=== PATIENT | male | born 1950 | race Caucasian/White ===

== ENCOUNTER 2016-12-09 16:35 | Inpatient (IN) | payer OTHER ==
[~2016-12-09] VITALS: Ht 172.7 cm; Wt 99.0 kg
--- NOTE | 2016-12-09 18:36 | DIAGNOSTIC IMAGING REPORT ---
PROCEDURE: XR CHEST 1 VIEW INDICATION: SHORTNESS OF BREATH TECHNIQUE: Portable AP view (1725 hours). COMPARISON: None. FINDINGS: Allowing for suboptimal inspiration, lungs are clear. Heart and mediastinum are normal. Mild to moderate degenerative changes of the thoracic spine. IMPRESSION: 1. Negative chest.
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
--- NOTE | 2016-12-09 20:29 | ED ORDER SUMMARY ---
..... Patient: KRYSTIN GREENBERG JR OrderSheet [facility] VisitID: [id number] [place] [address] 66y, M Registration Date/Time: 12/09/2016 ORDER SHEET Weight: 99.7 kg (stated) Allergies: No Known Drug Allergy GENERAL ORDERS: Chest 1V Urgent (17:17 12/09/2016 Galo RAMOS) (Ack 17:29 Hung) (19:05 LSullivan R.N.) Felt Tipping Machine Tender (Continuous) (17:17 12/09/2016 Galo RAMOS) (17:29 Hung) Cardiac Panel Stat (17:17 12/09/2016 Galo RAMOS) (Ack 17:29 Hung) (19:04 LSullivan R.N.) BNP Urgent (17:17 12/09/2016 Galo RAMOS) (Ack 17:29 Hung) (19:04 LSullivan R.N.) TSH Urgent (17:17 12/09/2016 Galo RAMOS) (Ack 17:29 Hung) (19:04 LSullivan R.N.) PCT (Procalcitonin) Urgent (17:17 12/09/2016 Galo RAMOS) (Ack 17:29 Hung) (19:04 LSullivan R.N.) Pulse oximeter (17:17 12/09/2016 Galo RAMOS) (17:29 RKkorey) EKG - ER Stat (17:17 12/09/2016 Galo RAMOS) (17:21 RKkorey) MEDICATION ORDERS: Xopenex Neb Tx 1 unit dose (NOW) (17:18 12/09/2016 Galo RAMOS) (19:06 LSullivan R.N.) Cardizem Drip IV : 10 mg/hr (NOW) (19:51 12/09/2016 CLARICEowen R.N. verbal order read back to Galo RAMOS) (Cancelled: Physician Order19:59 TBowen R.N.) Cardizem Drip IV : initial bolus none, then 10 mg/hr (NOW); Routine (21:17 12/09/2016 Galo RAMOS) (21:31 TByovany R.N.) Xopenex Neb Tx 1 unit dose (NOW) (21:25 12/09/2016 Galo RAMOS) (21:44 HSoule) IV FLUIDS: IV Saline Lock (17:17 12/09/2016 Galo RAMOS) (17:52 LSullivan R.N.) Solu-MEDROL IV 80 mg (NOW) (17:18 12/09/2016 Galo RAMOS) (18:00 LSullivan R.N.) Cardizem IV 10 mg (NOW) (19:07 12/09/2016 Galo RAMOS) (19:18 TBowen R.N.) Cardizem IV 20 mg (NOW) (19:53 12/09/2016 Galo RAMOS) (19:57 TBowgilberto R.N.) ORDER SHEET NOTES: [Electronically signed by Cecile Pastrana R.N. (22:47 12/09/2016)] [Electronically signed by Robinson Strange MD (11:45 12/10/2016)] [Electronically locked/signed by Cecile Pastrana R.N. (22:47 12/09/2016)]
--- NOTE | 2016-12-09 20:29 | ED ORDER SUMMARY ---
..... Patient: KRYSTIN GREENBERG JR OrderSheet [facility] VisitID: [id number] [place] [address] 66y, M Registration Date/Time: 12/09/2016 ORDER SHEET Weight: 99.7 kg (stated) Allergies: No Known Drug Allergy GENERAL ORDERS: Chest 1V Urgent (17:17 12/09/2016 Galo RAMOS) (Ack 17:29 Hung) (19:05 LSullivan R.N.) Pit And Auxiliaries Supervisor (Continuous) (17:17 12/09/2016 Galo RAMOS) (17:29 Hung) Cardiac Panel Stat (17:17 12/09/2016 Galo RAMOS) (Ack 17:29 Hung) (19:04 LSullivan R.N.) BNP Urgent (17:17 12/09/2016 Galo RAMOS) (Ack 17:29 Hung) (19:04 LSullivan R.N.) TSH Urgent (17:17 12/09/2016 Galo RAMOS) (Ack 17:29 Hung) (19:04 LSullivan R.N.) PCT (Procalcitonin) Urgent (17:17 12/09/2016 Galo RAMOS) (Ack 17:29 Hung) (19:04 LSullivan R.N.) Pulse oximeter (17:17 12/09/2016 Galo RAMOS) (17:29 RKkorey) EKG - ER Stat (17:17 12/09/2016 Galo RAMOS) (17:21 RKkorey) MEDICATION ORDERS: Xopenex Neb Tx 1 unit dose (NOW) (17:18 12/09/2016 Galo RAMOS) (19:06 LSullivan R.N.) Cardizem Drip IV : 10 mg/hr (NOW) (19:51 12/09/2016 CLARICEowen R.N. verbal order read back to Galo RAMOS) (Cancelled: Physician Order19:59 TBowen R.N.) Cardizem Drip IV : initial bolus none, then 10 mg/hr (NOW); Routine (21:17 12/09/2016 Galo RAMOS) (21:31 TByovany R.N.) Xopenex Neb Tx 1 unit dose (NOW) (21:25 12/09/2016 Galo RAMOS) (21:44 HSoule) IV FLUIDS: IV Saline Lock (17:17 12/09/2016 Galo RAMOS) (17:52 LSullivan R.N.) Solu-MEDROL IV 80 mg (NOW) (17:18 12/09/2016 Galo RAMOS) (18:00 LSullivan R.N.) Cardizem IV 10 mg (NOW) (19:07 12/09/2016 Galo RAMOS) (19:18 TBowen R.N.) Cardizem IV 20 mg (NOW) (19:53 12/09/2016 Galo RAMOS) (19:57 TBowgilberto R.N.) ORDER SHEET NOTES: [Electronically signed by Cecile Pastrana R.N. (22:47 12/09/2016)] [Electronically signed by Robinson Strange MD (11:45 12/10/2016)] [Electronically locked/signed by Cecile Pastrana R.N. (22:47 12/09/2016)]
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
[2016-12-09 22:51] VITALS: BP 113/64
[2016-12-10] VITALS (25 sets, daily range): BP systolic 11–137; BP diastolic 57–82
[2016-12-10] MEDS ORDERED: ALFUZOSIN HCL E10 MG PO (00:03)
[2016-12-10] MEDS ORDERED: ASPIRIN325 MG PO (00:04)
[2016-12-10] MEDS ORDERED: ATORVASTATIN CA40 MG PO (00:05)
[2016-12-10] MEDS ORDERED: GUAIFENESIN AC PO (00:06)
[2016-12-10] MEDS ORDERED: PRINIVIL5 MG PO (00:08)
[2016-12-10] MEDS ORDERED: MELOXICAM15 MG PO (00:10)
[2016-12-10] MEDS ORDERED: METOPROLOL TART25 MG PO (00:11)
[2016-12-10] MEDS ORDERED: PROAIR HFA IN (00:12)
[2016-12-10] MEDS ORDERED: SERTRALINE HCL50 MG PO (00:12)
[2016-12-10] MEDS ORDERED: ZOLOFT50 MG PO (00:14)
--- NOTE | 2016-12-10 08:38 | Progress Note ---
Subjective General ADVANCED CARE PLAN History of Present Illness The patient is a 66-year-old white male with a significant past medical history of COPD, coronary artery disease status post myocardial infarction status post stent placement, peripheral arterial disease, hypertension, CHF, degenerative joint disease, hyperlipidemia, who presented to [facility] on the day of admission secondary to complaints of syncope 6, and atrial flutter. [facility] ER evaluation was consistent with recurrent syncope always associated with coughing episodes, atrial flutter with rapid ventricular response. Secondary to the above, the patient was admitted by Dustin Hernandez M.D. for further evaluation and treatment. For other history present illness, past medical history, family history, social history, review of systems, and admission physical examination please see the patient's history and physical examination and ER visit note in the patient's medical record. A discussion was undertaken with the patient regarding previous advance care arrangements/decisions. The following advanced directives were noted by the patient and discussed with me at the time of admission. ADVANCED DIRECTIVES: 1. Living well: No 2. POLST: No 3. CODE STATUS: FULL CODE 4. Durable Power Carnival Worker Health care: Yes 5. Donor card: No The patient has expressed interest in pursuing full resuscitative efforts at the time of cardiopulmonary arrest. The patient's wishes were documented in the chart and orders regarding the patient's wishes entered into the [employer] CPOE system. The "Advance Care Plan Document" was not distributed to patient to discuss with his family. Less than 30 minutes was spent in performing the above tasks and documentation of the patient's advanced care plan.
--- NOTE | 2016-12-10 08:38 | Progress Note ---
Subjective General ADVANCED CARE PLAN History of Present Illness The patient is a 66-year-old white male with a significant past medical history of COPD, coronary artery disease status post myocardial infarction status post stent placement, peripheral arterial disease, hypertension, CHF, degenerative joint disease, hyperlipidemia, who presented to [facility] on the day of admission secondary to complaints of syncope 6, and atrial flutter. [facility] ER evaluation was consistent with recurrent syncope always associated with coughing episodes, atrial flutter with rapid ventricular response. Secondary to the above, the patient was admitted by Dustin Hernandez M.D. for further evaluation and treatment. For other history present illness, past medical history, family history, social history, review of systems, and admission physical examination please see the patient's history and physical examination and ER visit note in the patient's medical record. A discussion was undertaken with the patient regarding previous advance care arrangements/decisions. The following advanced directives were noted by the patient and discussed with me at the time of admission. ADVANCED DIRECTIVES: 1. Living well: No 2. POLST: No 3. CODE STATUS: FULL CODE 4. Durable Power Pump Station Operator Health care: Yes 5. Donor card: No The patient has expressed interest in pursuing full resuscitative efforts at the time of cardiopulmonary arrest. The patient's wishes were documented in the chart and orders regarding the patient's wishes entered into the [employer] CPOE system. The "Advance Care Plan Document" was not distributed to patient to discuss with his family. Less than 30 minutes was spent in performing the above tasks and documentation of the patient's advanced care plan.
--- NOTE | 2016-12-10 11:45 | ED MED RECONCILIATION SUMMARY ---
Patient: KRYSTIN GREENBERG Medication Reconciliation Report [facility] VisitID: [id number] [address] [place] [address] 66y, M Registration Date/Time: 12/09/2016 Weight: 99.7 kg Height/Length: 60 in. BMI: 33.0 ALLERGIES: No Known Drug Allergy The patient's Home Medications are listed below: THE FOLLOWING MEDICATIONS NEED TO BE RECONCILED: Alfuzosin HCl ER Oral (10 mg) 1 tablet ASA Oral 325 mg daily Atorvastatin Calcium Oral 40 mg, daily Guaifenesin W/Codeine Oral 5 mls 10mg/100mg/5mls Lisinopril Oral 5 mg, daily Meloxicam Oral (15 mg) 1 tablet, daily Metoprolol Tartrate Oral 25 mg, BID ProAir HFA Inhalation 2 puffs, 4x a day Sertraline HCl Oral 50 mg, daily The source(s) of the original Home Medication information: Not obtained. The following Medications were given to the patient in the Emergency Department: SOLU-MEDROL [IVP] IVP 80 mg, administered: 12/09/2016 6:00:00 PM Xopenex [Neb TX] Neb TX 1.25 mg, administered: 12/09/2016 6:41:00 PM Cardizem [IVP] IVP 10 mg, administered: 12/09/2016 7:18:00 PM Cardizem [IVP] IVP 20 mg, administered: 12/09/2016 7:57:00 PM Cardizem [IV Drip] Drip IV bolus 0, then 10 mg 10 mg/hr, administered: 12/09/2016 9:31:00 PM Xopenex [Neb TX] Neb TX 1 unit dose, administered: 12/09/2016 9:44:00 PM The following Medications were prescribed to the patient: None.
--- NOTE | 2016-12-10 11:45 | ED MAR SUMMARY ---
..... Medication Administration Record [facility] [address] [place] [address] Patient: KRYSTIN GREENBERG Visit ID: [id number] 66y, M Weight: 99.7 kg Height/Length: 68.5 in BMI: 33 ALLERGIES: No Known Drug Allergy Given 18:00 12/09/2016 Kourtney Tovar R.N. Medication Administered: SOLU-MEDROL [IVP] (METHYLPREDNISOLONE SODIUM SUCC), Dose: 80 mg IVP over 2 minute(s), Site: #1 right hand. Medication Ordered: Solu-MEDROL IV 80 mg (NOW). Given 18:41 12/09/2016 Kourtney Tovar R.N. Medication Administered: XOPENEX [NEB TX] (LEVALBUTEROL HCL), Dose: 1.25 mg Nebulizer Neb TX. Medication Ordered: Xopenex Neb Tx 1 unit dose (NOW). Given 19:18 12/09/2016 Yoana Garcia Medication Administered: CARDIZEM [IVP], Dose: 10 mg IVP over 1 minute(s), Site: #1 right hand. Medication Ordered: Cardizem IV 10 mg (NOW). Given 19:57 12/09/2016 Yoana Garcia Medication Administered: CARDIZEM [IVP], Dose: 20 mg IVP over 2 minute(s), Site: #1 right hand. Medication Ordered: Cardizem IV 20 mg (NOW). Start 21:31 12/09/2016 Yoana Garcia Medication Administered: CARDIZEM [IV DRIP], Dose: 10 mg Drip IV over 10 hour(s), Rate: 10 mg/hr, Dispensed: 125 mL bag, Site: #1 right hand. Medication Ordered: Cardizem Drip IV : initial bolus none, then 10 mg/hr (NOW); Routine. Given 21:44 12/09/2016 Jordyn Dai, Medication Administered: XOPENEX [NEB TX] (LEVALBUTEROL HCL), Dose: 1 unit dose Nebulizer Neb TX. Medication Ordered: Xopenex Neb Tx 1 unit dose (NOW).
--- NOTE | 2016-12-10 11:45 | ED MED RECONCILIATION SUMMARY ---
Patient: KRYSTIN GREENBERG Medication Reconciliation Report [facility] VisitID: [id number] [address] [place] [address] 66y, M Registration Date/Time: 12/09/2016 Weight: 99.7 kg Height/Length: 60 in. BMI: 33.0 ALLERGIES: No Known Drug Allergy The patient's Home Medications are listed below: THE FOLLOWING MEDICATIONS NEED TO BE RECONCILED: Alfuzosin HCl ER Oral (10 mg) 1 tablet ASA Oral 325 mg daily Atorvastatin Calcium Oral 40 mg, daily Guaifenesin W/Codeine Oral 5 mls 10mg/100mg/5mls Lisinopril Oral 5 mg, daily Meloxicam Oral (15 mg) 1 tablet, daily Metoprolol Tartrate Oral 25 mg, BID ProAir HFA Inhalation 2 puffs, 4x a day Sertraline HCl Oral 50 mg, daily The source(s) of the original Home Medication information: Not obtained. The following Medications were given to the patient in the Emergency Department: SOLU-MEDROL [IVP] IVP 80 mg, administered: 12/09/2016 6:00:00 PM Xopenex [Neb TX] Neb TX 1.25 mg, administered: 12/09/2016 6:41:00 PM Cardizem [IVP] IVP 10 mg, administered: 12/09/2016 7:18:00 PM Cardizem [IVP] IVP 20 mg, administered: 12/09/2016 7:57:00 PM Cardizem [IV Drip] Drip IV bolus 0, then 10 mg 10 mg/hr, administered: 12/09/2016 9:31:00 PM Xopenex [Neb TX] Neb TX 1 unit dose, administered: 12/09/2016 9:44:00 PM The following Medications were prescribed to the patient: None.
--- NOTE | 2016-12-10 11:45 | ED DISCHARGE INSTRUCTIONS ---
Patient: KRYSTIN GREENBERG JR General Instructions [facility] VisitID: [id number] [place] [address] 66y, M Registration Date/Time: 12/09/2016 Syncope secondary to illness .12 lead EKG performed. New onset atrial flutter. The patient does not have one or more high risk factors and/or two or more moderate risk factors for thromboembolism. ADDITIONAL INFORMATION Atrial Flutter Atrial flutteris a condition where the heart beats at a very rapid rate. It is due to a disturbance in the electrical pathways of the heart. It is a sign of heart disease or other health problems affecting the heart. The most common symptom ispalpitations. This is the feeling that your heart is fluttering or beating fast or hard. When the heart beats too fast, it does not pump blood very well. This can cause other symptoms such as anxiety, fatigue, shortness of breath, chest pain, dizziness or fainting. If this is your first episode of atrial flutter, and you have no heart or lung disease, you may never have another episode again. But in most cases, atrial flutter comes and goes, lasting from a few hours to a couple of days. Sometimes the atrial flutter does not ever go away and becomes chronic. Atrial flutter may be caused by disease of the heart or other conditions in the body that affect the heart: Coronary artery disease (arteriosclerosis) High blood pressure Disease of the heart valves Enlarged heart Atrial flutter can occur without heart disease due to: Overactive thyroid (hyperthyroid) Chronic lung disease (COPD, emphysema, bronchitis) Heavy alcohol use Cardiac stimulants (cocaine, amphetamines, diet pills, certain decongestant cold medicines, caffeine or nicotine) Infection Treating or removing these causes will improve success in the treatment of atrial flutter and reduce your risk of recurrence. Atrial flutter can alternate back and forth with another abnormal rhythm called atrial fibrillation. The risk of stroke is higher with these conditions. Proper treatment can reduce your risk. Home Care: Resume your usual activities as soon as you are feeling back to normal. If you smoke, stop smoking. Contact your doctor or a local stop-smoking program for help. Avoid stimulants (cocaine, amphetamines, diet pills, certain decongestant cold medicines, caffeine, or nicotine). If medicine is prescribed to prevent recurrence of atrial fibrillation, take it exactly as directed. Some medicines must be taken daily, not just when you have symptoms, in order to be effective. If you were prescribed warfarin (Coumadin) to reduce stroke risk, have your blood tested on a regular basis as advised by your doctor. This will ensure that the dose is correct for you. Follow Up With Your Doctor Or As Advised By Our Staff. Get Prompt Medical Attention If Any Of The Following Occur: Increasing shortness of breath Swellingof the legs Unexpected weight gain Chest pain or palpitations (the sense that your heart is fluttering, beating fast or hard) Fever of 100.4F (38C) or higher, or as directed by your healthcare provider Cough with dark-colored or bloody sputum (mucus) Pain, redness, or swelling in one leg Signs of stroke: Weakness or numbness of an arm or leg or one side of the face Difficulty with speech or vision Extreme drowsiness, confusion, dizziness or fainting You have been given the following additional information: Atrial Flutter (Electronically signed by Robinson Strange MD 12/10/2016 11:45)
--- NOTE | 2016-12-10 11:45 | ED MAR SUMMARY ---
..... Medication Administration Record [facility] [address] [place] [address] Patient: KRYSTIN GREENBERG Visit ID: [id number] 66y, M Weight: 99.7 kg Height/Length: 68.5 in BMI: 33 ALLERGIES: No Known Drug Allergy Given 18:00 12/09/2016 Kourtney Tovar R.N. Medication Administered: SOLU-MEDROL [IVP] (METHYLPREDNISOLONE SODIUM SUCC), Dose: 80 mg IVP over 2 minute(s), Site: #1 right hand. Medication Ordered: Solu-MEDROL IV 80 mg (NOW). Given 18:41 12/09/2016 Kourtney Tovar R.N. Medication Administered: XOPENEX [NEB TX] (LEVALBUTEROL HCL), Dose: 1.25 mg Nebulizer Neb TX. Medication Ordered: Xopenex Neb Tx 1 unit dose (NOW). Given 19:18 12/09/2016 Yoana Garcia Medication Administered: CARDIZEM [IVP], Dose: 10 mg IVP over 1 minute(s), Site: #1 right hand. Medication Ordered: Cardizem IV 10 mg (NOW). Given 19:57 12/09/2016 Yoana Garcia Medication Administered: CARDIZEM [IVP], Dose: 20 mg IVP over 2 minute(s), Site: #1 right hand. Medication Ordered: Cardizem IV 20 mg (NOW). Start 21:31 12/09/2016 Yoana Garcia Medication Administered: CARDIZEM [IV DRIP], Dose: 10 mg Drip IV over 10 hour(s), Rate: 10 mg/hr, Dispensed: 125 mL bag, Site: #1 right hand. Medication Ordered: Cardizem Drip IV : initial bolus none, then 10 mg/hr (NOW); Routine. Given 21:44 12/09/2016 Jordyn Dai, Medication Administered: XOPENEX [NEB TX] (LEVALBUTEROL HCL), Dose: 1 unit dose Nebulizer Neb TX. Medication Ordered: Xopenex Neb Tx 1 unit dose (NOW).
--- NOTE | 2016-12-10 16:38 | Progress Note ---
Subjective General Mister Makayla is admitted for rapid heart rate due to atrial flutter. He has had syncopal spells triggered by coughing which seemed to induce a rapid heart rate triggering hypotension. He has been started on a diltiazem infusion and has had his heart rate control. He continues with atrial flutter pattern. He continues coughing quite a bit. Review of his history shows that he is on lisinopril for hypertension. He has had some inhalers prescribed recently but can't remember the names of these. He is receiving DuoNeb treatments. He did have an episode of coughing triggering a syncopal spell this morning and as soon as he was put back into bed he has been doing okay since. Constitutional Weakness. Denies: Fever, Chills. Eyes Denies: Vision Change. ENT Denies: Other (noENT complaints). Respiratory Cough (DuoNeb treatments have not hel), Dry, Other (dry cough not really improving). Cardiovascular Other (syncope with coughing triggeri). Denies: Chest Pain. Gastrointestinal Denies: Nausea, Vomiting, Abdominal Pain, Diarrhea. Genitourinary Denies: Dysuria, Frequency, Incontinence. Musculoskeletal Denies: Other (no musculoskeletal complaints.). Skin Denies: Rash, Lesions, Bruising. Neurological Weakness. Denies: Numbness, Incoordination, Change in speech, Confusion, Seizures. Physical Exam Vital Signs / I&Os Vital Signs Date Time Temp Pulse Resp B/P Pulse O2 O2 Flow FiO2 Ox Delivery Rate 12/10 1610 97.9 68 19 109/77 98 Nasal 2.0 Cannula 12/10 1510 97.9 72 17 112/67 99 Nasal 2.0 Cannula 12/10 1421 100/63 12/10 1401 97.9 74 16 97 Nasal 2.0 Cannula 12/10 1343 120/69 04/ 1300 75 17 98 Nasal 2.0 Cannula 12/10 1200 92 17 137/65 98 Nasal 2.0 Cannula 12/10 1115 78 17 127/67 97 Nasal 2.0 Cannula 12/10 1034 97.5 94 18 123/59 97 Nasal 2.0 Cannula 12/10 0900 2.0 12/10 0900 75 16 106/67 95 Nasal 2.0 Cannula 12/10 0809 136/69 12/10 0800 Nasal 2.0 Cannula 12/10 0800 96 115/67 04 0715 86 16 111/68 95 Nasal 2.0 Cannula 12/10 0648 98.2 89 16 110/72 95 Nasal 2.0 Cannula 12/10 0510 94 18 128/74 96 Nasal 2.0 Cannula 12/10 0445 2.0 12/10 0400 98.2 94 17 116/57 97 Nasal 2.0 Cannula 12/10 0302 Nasal 2.0 Cannula 12/10 0300 94 20 114/62 94 Room Air 12/10 0250 2.0 12/10 0200 95 18 119/64 92 Room Air 12/10 0100 102 18 117/67 93 Room Air 04 0000 86 18 124/67 94 Room Air 12/09 2251 98.2 103 16 113/64 94 Room Air I&O 12/09 0800 12/09 1600 12/10 0000 Intake Total 0 Output Total 0 Balance 0 General Appearance Alert, Oriented X3, Cooperative, No acute distress HEENT EOMI, Moist mucous membranes Lungs decreased breath sounds with slightly prolonged expiratory phase. No significant wheezing. A few scattered rhonchi. Cardiovascular irregular rate. S1 and S2 normal. No distinct murmur. Abdomen Normal bowel sounds, Soft, No tenderness, No guarding, No rebound, No masses Extremities No cyanosis, No edema, Normal pulses, No tenderness Skin No Rashes, No Breakdown, No Significant Lesions Neurological Normal exam, Normal speech, Normal tone, Sensation intact, Cranial nerves intact, No lateralizing signs Psych/Mental Status Mental status normal Assessment and Plan Problem List 1. NEW ONSET ATRIAL FLUTTER WITH RVR Plan Continue diltiazem drip. Start metoprolol tartrate 25 mg every 12 hours. We'll start warfarin with pro time checked in a.m. 2. COPD (chronic obstructive pulmonary disease) Status Chronic Onset Date Unknown Plan Continue with DuoNeb treatments at every 6 hours. Will try benzonatate 200 mg strength 1 every 8 hours to help control cough. 3. Hypertension Status Chronic Onset Date Unknown Plan Blood pressure control. Lisinopril may be contributing to cough. We will stop this and see how patient responds to the metoprolol. 4. Hyponatremia Status Acute Onset Date Unknown Plan Sodium level this morning is normal. This problem has corrected itself. E&M Codes Rounding: Inpt-Moderate/67136
[2016-12-11] VITALS (16 sets, daily range): BP systolic 93–129; BP diastolic 46–79
--- NOTE | 2016-12-11 11:37 | Progress Note ---
Subjective General Patient states that he is feeling better than he did. Has been with hx of passing out with coughing going on for months and years. Has new aflutter but feeling well and strong. No cp,sob. Has cough a little worse today Has normal HR when has coughing near syncope Physical Exam Vital Signs / I&Os Vital Signs Date Time Temp Pulse Resp B/P Pulse O2 O2 Flow FiO2 Ox Delivery Rate 12/11 1003 97.9 70 21 123/64 98 Nasal 2.0 Cannula 04/ 0900 Nasal 2.0 Cannula 04/ 0800 73 24 129/63 96 Nasal 2.0 Cannula /10 0713 72 17 116/72 95 Nasal 2.0 Cannula 04/10 0610 97.9 71 21 110/64 96 Nasal 2.0 Cannula / 0606 2.0 / 0510 64 20 111/60 96 Nasal 2.0 Cannula / 0410 97.7 69 20 100/60 96 Nasal 2.0 Cannula / 0311 98.2 69 22 111/66 96 Nasal 2.0 Cannula / 0214 72 17 100/65 97 Nasal 2.0 Cannula 04/ 0110 75 17 112/79 96 Nasal 2.0 Cannula / 0019 77 16 111/66 96 Nasal 2.0 Cannula 04/09 2327 97.9 74 16 111/66 95 Nasal Cannula 04/09 2218 Nasal 2.0 Cannula 04/ 2211 97.9 68 18 114/71 94 Nasal 2.0 Cannula 04/09 2110 97.9 91 21 134/82 96 Nasal 2.0 Cannula /2009 98.4 74 20 115/69 95 Nasal 2.0 Cannula 04/09 1950 2.0 04/ 1912 98.4 82 17 116/68 98 Nasal 2.0 Cannula 04/ 1809 98.2 78 25 130/76 96 Nasal 2.0 Cannula 04/09 1710 97.5 95 23 106/72 97 Nasal 2.0 Cannula 04/09 1610 97.9 68 19 109/77 98 Nasal 2.0 Cannula 04/ 1510 97.9 72 17 112/67 99 Nasal 2.0 Cannula 04/09 1421 100/63 04/09 1401 97.9 74 16 97 Nasal 2.0 Cannula 04/09 1400 2.0 04/09 1343 120/69 04/09 1300 75 17 98 Nasal 2.0 Cannula 12/10 1200 92 17 137/65 98 Nasal 2.0 Cannula I&O 12/11 0000 12/10 1600 12/10 0800 Intake Total 810 480 Output Total 425 325 400 Balance 385 155 -400 General Appearance Alert, Cooperative HEENT Normal exam Lungs coarse BS non focal Cardiovascular Regular rate and rhythm Abdomen Soft, No tenderness Extremities No edema LAB Results Laboratory Tests 12/11 0455 Chemistry Plasma Sodium (136 - 145 mmol/L) 142 Plasma Potassium (3.5 - 5.1 mmol/L) 4.2 Plasma Chloride (98 - 107 mmol/L) 105 CO2 (Enzymatic) (21 - 32 mmol/L) 27 BUN (7 - 18 mg/dL) 39 Creatinine (0.6 - 1.3 mg/dL) 1.1 Est GFR ( Amer) (mL/min) >60 Est GFR (Non-Af Amer) (mL/min) >60 Glucose (70 - 110 mg/dL) 95 Plasma Calcium (8.5 - 10.1 mg/dL) 8.4 Plasma Magnesium (1.8 - 2.4 mg/dL) 1.8 Coagulation INR (0.8 - 1.2) 1.1 Hematology WBC (4.5 - 11.5 K/uL) 17.5 RBC (4.50 - 5.90 M/uL) 4.14 Hgb (13.5 - 17.5 gm/dL) 12.6 Hct (41.0 - 53.0 %) 38.5 MCV (80 - 100 fL) 93 MCH (26 - 34 pg) 31 RDW (11.6 - 14.8 %) 14.4 Neut % (Auto) (50 - 75 %) 64.0 Lymph % (Auto) (25 - 40 %) 29.9 Crenshaw % (Auto) (3 - 14 %) 5.4 Eos % (Auto) (0 - 4 %) 0.3 Baso % (Auto) (0 - 2 %) 0.4 Plt Count, EDTA (150 - 400 K/uL) 378 PUBS MCHC (31 - 37 g/dL) 33 Assessment and Plan Problem List 1. Syncope Plan Has hx of passing out with cough correction. 2. NEW ONSET ATRIAL FLUTTER WITH RVR Plan Is stable wean off gtt and start on xarelto; increase beta hemal. 3. Atrial flutter Status Acute Onset Date Unknown Plan xarelto and beta hemal, wean gtt 4. Coronary artery disease Status Chronic Onset Date Unknown Plan change to xopenex. 5. COPD (chronic obstructive pulmonary disease) Status Chronic Onset Date Unknown 6. CHF (congestive heart failure) Status Chronic Onset Date Unknown Plan echo done today and pending results.
--- NOTE | 2016-12-11 13:05 | DIAGNOSTIC IMAGING REPORT ---
PROCEDURE: XR CHEST 2 VIEW INDICATION: cough TECHNIQUE: PA and lateral views. COMPARISON: Chest 12/09/2016 FINDINGS: Lungs are clear. Heart and mediastinum are normal. Thorax is normal. IMPRESSION: 1. Negative chest.
[2016-12-11] MEDS ORDERED: SPIRIVA18 MCG IN (14:41)
[2016-12-11] MEDS ORDERED: BENZONATATE100 MG PO (14:42)
[2016-12-11] MEDS ORDERED: XARELTO10 MG PO (14:42)
--- NOTE | 2016-12-11 14:46 | Provider's Discharge Care Plan ---
Problem, Goal, Plan Problem List 1. Syncope Instructions: Patient with passing out related to cough f/u with pmd going on for months 2. NEW ONSET ATRIAL FLUTTER WITH RVR Instructions: Follow up as directed, Take meds as directed, f/u on echo with PMD 3. CHF (congestive heart failure) Instructions: Follow up as directed, Take meds as directed 4. COPD (chronic obstructive pulmonary disease) Instructions: Take meds as directed
[2016-12-11] MEDS ORDERED: METOPROLOL TART25 MG PO (16:22)
--- NOTE | 2016-12-12 17:53 | DIAGNOSTIC IMAGING REPORT ---
REFERRING PHYSICIAN/PROVIDER: Dustin Hernandez MD CONSULTING WATCH INSPECTOR FINAL MOVEMENT: Patrick Wyatt MD INDICATION: aflutter Procedure: A two-dimensional transthoracic echocardiogram with color flow and Doppler was performed. The study quality was technically adequate. The patient was in atrial fibrillation with controlled ventricular rate during the exam. Left Ventricle: The left ventricle is normal in size. There is mild concentric left ventricular hypertrophy. Left ventricular systolic function is mildly reduced. The ejection fraction is estimated to be 45-50%. There is mild global hypokinesis of the left ventricle. The E/E'is normal. Right Ventricle: The right ventricle is mildly dilated. Right ventricular systolic function is borderline reduced. Atria: The left atrium is moderately dilated. The interatrial septum is intact with no evidence for an atrial septal defect. Mitral Valve: The mitral valve is normal in structure but abnormal in function. There is mild to moderate mitral regurgitation. Aortic Valve: The aortic valve is trileaflet. The aortic valve is mildly calcified. There is no hemodynamically significant valvular aortic stenosis. There is trace aortic regurgitation. Tricuspid Valve: The tricuspid valve is normal in structure and function. There is a trace or physiologic amount of tricuspid regurgitation. Pulmonary artery pressures cannot be estimated because of the lack of a measurable TR jet velocity. Pulmonic Valve: The pulmonic valve is normal in structure and function. There is no pulmonic valvular regurgitation. There is no other significant valvular heart disease. Great Vessels: The aortic root is normal size. The dimensions of the ascending aorta are normal. The IVC is of normal diameter and collapses greater than 50% with a sniff. This suggests a low right atrial pressure of 3 mm Hg. Pericardium/ Pleura There is an anterior echo-free space consistent with a fat pad. There is no pericardial effusion. IMPRESSION: There is mild concentric left ventricular hypertrophy. Left ventricular systolic function is mildly reduced. The ejection fraction is estimated to be 45-50%. There is mild global hypokinesis of the left ventricle. The E/E'is normal. The right ventricle is mildly dilated. Right ventricular systolic function is borderline reduced. The left atrium is moderately dilated. There is mild to moderate mitral regurgitation. There is no other significant valvular heart disease. The aortic root is normal size.
== END 2016-12-11 16:30 | disposition home or self-care (01) | DRG 309 ==
LOC: ED SRH 16:35 → TRANS SRH 20:44 → CC SRH 22:40
PROVIDERS: ADMIT Emergency Medicine
DX: I48.92 Unspecified atrial flutter (principal); E87.1 Hypo-osmolality and hyponatremia; R05 Cough; R55 Syncope and collapse; I25.10 Atherosclerotic heart disease of native coronary artery without angina pectoris; Z95.5 Presence of coronary angioplasty implant and graft; I11.0 Hypertensive heart disease with heart failure; I50.9 Heart failure, unspecified; J44.9 Chronic obstructive pulmonary disease, unspecified; D64.9 Anemia, unspecified; R73.9 Hyperglycemia, unspecified; E78.5 Hyperlipidemia, unspecified
CPT/HCPCS: 90004; 90047; 90074; 90098; 90100; 90616; 91286; 91320; 91504; 91505; 92132; 92610; 92668; 92670; 92720; 93004; 93140; 94001; 94060; 95059